=== PATIENT | male | born 1990 | race African-American/Black ===

== ENCOUNTER 2022-05-04 11:59 | Emergency (ER) | payer SELFPAY ==
[~2022-05-04] VITALS: Ht 170.2 cm; Wt 83.5 kg
[2022-05-04] MEDS ORDERED: MEDROL4 MG PO (12:42)
[2022-05-04] MEDS ORDERED: AMOX TR-K CLV1 EAC2 PO (12:42)
[2022-05-04] MEDS ORDERED: IBUPROFEN600 MG PO (12:42)
== END 2022-05-04 13:07 | disposition home or self-care (01) ==
LOC: FSED 12:35
DX: J02.0 Streptococcal pharyngitis (principal)
CPT/HCPCS: 83518; 87400; 99282